=== PATIENT | male | born 1990 ===

== ENCOUNTER 2019-01-11 21:50 | Emergency (ER) | payer MEDICARE, MEDICAID ==
[2019-01-11 22:14] VITALS: O2SAT 97
[2019-01-11 22:27] LABS: BASO % 0.5 % (0.0-2.0); EOS # 0.2 K/uL (0.0-0.7); EOS % 2.7 % (0.0-4.0); HEMOGLOBIN 14.3 g/dL (12.0-18.0); LYMPH # 3.1 K/uL (1.0-4.3); LYMPH % 53.1 % (20.0-40.0); MEAN CORPUSCULAR HEMOGLOBIN 29.8 pg (27.0-31.0); MEAN CORPUSCULAR HGB CONC 33.4 g/dL (33.0-37.0); MEAN PLATELET VOLUME 8.5 fL (7.2-11.7); MONO # 0.5 K/uL (0.0-0.8); NEUT # 2.1 K/uL (1.8-7.0); NEUT % 35.7 % (50.0-75.0); NRBC % 0.1 % (0.0-2.0); RBC 4.79 Mil/uL (4.40-5.90); RED CELL DISTRIBUTION WIDTH 12.8 % (11.5-14.5); WHITE BLOOD COUNT 5.8 K/uL (4.8-10.8)
[2019-01-11 22:42] LABS: BARBITURATES, UR NEGATIVE (NEGATIVE); BENZODIAZEPINES, UR NEGATIVE (NEGATIVE); OPIATES, UR NEGATIVE (NEGATIVE); PHENCYCLIDINE, UR NEGATIVE (NEGATIVE)
[2019-01-11 22:43] LABS: ALB/GLOB RATIO 1.6 (1.0-2.1); ALBUMIN 4.9 g/dL (3.5-5.0); ALT/SGPT 24 U/L (21-72); AST/SGOT 31 U/L (17-59); BLOOD UREA NITROGEN 19 mg/dL (9-20); CALCIUM 9.4 mg/dl (8.6-10.4); GFR NON-AFRICAN AMERICAN > 60
[2019-01-11 22:47] LABS: URINE AMORPHOUS SEDIMENT FEW /ul (<OCC); URINE BACTERIA RARE (<OCC); URINE BILIRUBIN NEGATIVE (NEGATIVE); URINE BLOOD NEGATIVE (NEGATIVE); URINE CLARITY Hazy (Clear); URINE COLOR Yellow (YELLOW); URINE GLUCOSE (UA) NORMAL (Normal); URINE LEUKOCYTE ESTERASE NEG Leu/uL (Negative); URINE PROTEIN NEGATIVE (NEGATIVE); URINE UROBILINOGEN NORMAL mg/dL (0.2-1.0)
--- NOTE | 2019-01-11 22:48 | C.PDOC ---
History Of Present Illness 28 year old male presents to the ED for psychiatric evaluation. Patient admits to hearing voices telling him to hurt other people and seeing shadows while he was watching TV around one hour prior to arrival. Patient denies suicidal i deation or any homicidal plan at this time. Time Seen by Provider: 01/11/19 21:52 Chief Complaint (Nursing): Psychiatric Evaluation History Per: Patient History/Exam Limitations: no limitations Onset/Duration Of Symptoms: Mins (60) Current Symptoms Are (Timing): Still Present Associated Symptoms: Other (homicidal ideation, no plan ). denies: Suicidal Plan Additional History Per: Patient Past Medical History Reviewed: Historical Data, Nursing Documentation, Vital Signs Vital Signs: Last Vital Signs Temp 97.6 F 01/11/19 21:55 Pulse 73 01/11/19 21:55 Resp 20 01/11/19 21:55 BP 126/84 01/11/19 21:55 Pulse Ox 97 01/11/19 21:55 - Medical History PMH: Anxiety, Bipolar Disorder, Depression, Hypercholesterolemia, Schizophrenia Denies: Diabetes (pt denied), Hepatitis (pt denied), HIV (pt denied), HTN (pt denied), Chronic Kidney Disease, Seizures (pt denied), Sexually Transmitted Disease (pt denied) Surgical History: Endoscopy Denies: Appendectomy - [facility] GROUP PSYCHOTHERAPY (05/11/18) INDIVID PSYCHOTHERAP NEC (09/09/14) INDIVIDUAL PSYCHOTHERAPY, COGNITIVE-BEHAVIORAL (05/11/18) OTHER GROUP THERAPY (09/09/14) Family History: States: Unknown Family Hx - Social History Hx Alcohol Use: No Hx Substance Use: No - Immunization History Hx Tetanus Toxoid Vaccination: No Hx Influenza Vaccination: No Hx Pneumococcal Vaccination: No Review Of Systems Except As Marked, All Systems Reviewed And Found Negative. Respiratory: Negative for: Shortness of Breath Psych: Negative for: Suicidal ideation Physical Exam - Physical Exam Additional Physical Exam Comments: Constitutional: No acute distress. Head: Normocephalic. Atraumatic. Eyes: PERRL. ENT: Moist mucous membranes. Neck: Supple. Cardiovascular: Regular rate. Radial pulse 2+ bilaterally. Chest: No tenderness. Respiratory: Clear to auscultation bilaterally. GI: Soft. Nontender. Nondistended. Back: No CVA tenderness. Musculoskeletal: No tenderness or swelling of extremities. Skin: No rash. Neurologic: Alert, no focal deficit. ED Course And Treatment - Laboratory Results Result Diagrams: 01/11/19 22:22 01/11/19 22:22 Lab Results: Total Bilirubin 0.2 mg/dL (0.2-1.3) 01/11/19 22:22 AST 31 U/L (17-59) 01/11/19 22:22 ALT 24 U/L (21-72) 01/11/19 22:22 Alkaline Phosphatase 63 U/L (38-126) 01/11/19 22:22 Total Protein 8.0 g/dL (6.3-8.3) 01/11/19 22:22 Albumin 4.9 g/dL (3.5-5.0) 01/11/19 22:22 Globulin 3.1 gm/dL (2.2-3.9) 01/11/19 22:22 Albumin/Globulin Ratio 1.6 (1.0-2.1) 01/11/19 22:22 O2 Sat by Pulse Oximetry: 97 (on RA) Pulse Ox Interpretation: Normal Medical Decision Making Medical Decision Making: Progress: Bloodwork and urinalysis ordered and reviewed. Patient placed on one-to-one ED observation. Crisis evaluated, Dr. Bhatti recommends discharge at this time. Disposition - Disposition Disposition: HOME/ ROUTINE Disposition Time: 00:40 Condition: STABLE Instructions: Schizoaffective Disorder Forms: [facility] (Vietnamese) - Clinical Impression Clinical Impression: Schizoaffective disorder - Scribe Statement The provider has reviewed the documentation as recorded by the Scribe (Ursula Rodriguez) Provider Attestation: All medical record entries made by the Scribe were at my direction and personally dictated by me. I have reviewed the chart and agree that the record accurately reflects my personal performance of the history, physical exam, medical decision making, and the department course for this patient. I have also personally directed, reviewed, and agree with the discharge instructions and disposition.
[2019-01-12 00:42] VITALS: BP 116/71; PULSE 74; RESP 16; TEMP 97.8
== END 2019-01-12 01:49 | disposition home or self-care (01) ==
LOC: C.ER 21:50
DX: F25.9 Schizoaffective disorder, unspecified (principal); F41.9 Anxiety disorder, unspecified; E78.00 Pure hypercholesterolemia, unspecified
CPT/HCPCS: 80053; 81001; 83735; 84100; 85025; 99283; G0480